=== PATIENT | female | born 2000 | race African-American/Black ===

== ENCOUNTER 2022-07-18 14:35 | Emergency (ER) | payer OTHER, SELFPAY ==
[2022-07-18 14:40] VITALS: BP 135/88; PULSE 94; RESP 18; TEMP 36.2; O2SAT 100
--- NOTE | 2022-07-18 15:17 | ED.BURNSMOKE ---
HPI - Burn/Smoke Inhalation General Chief complaint: Burn/Smoke Inhalation Stated complaint: burn on arm from work Time Seen by Provider: 07/18/22 14:52 Source: patient Mode of arrival: ambulatory Limitations: no limitations History of Present Illness HPI Narrative: This is a 22-year-old female that presents to the emergency department for a burn to the left forearm sustained just prior to arrival. 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 Reports burning pain to the left forearm. She is up to date on tetanus. Denies numbness. Related Data Allergies Allergy/AdvReac Type Severity Reaction Status Date / Time No Known Allergies Allergy Verified 07/18/22 14:54 Review of Systems Review of Systems: CONSTITUTIONAL: Denies fever SKIN: Reports burn MUSCULOSKELETAL: Denies joint pain, or myalgia. NEUROLOGIC: Denies numbness, or weakness. All systems reviewed & are unremarkable except as noted in HPI and below PMFSH Past Medical History Medical History (Updated 07/18/22 @ 15:26 by Ca Carlos PA-C) No active medical problems Social History Social History (Updated 07/18/22 @ 15:21 by Ca Carlos PA-C) Smoking status: Never smoker Exam Narrative: GENERAL: Well-appearing, well-nourished, and in no acute distress. HEAD: Normocephalic, atraumatic. EYES: EOMI. EXTREMITIES: Normal range of motion. No edema. Normal radial pulse. Normal sensation. Small, superficial burn to the left forearm SKIN: Warm, dry, no rash. NEURO: No focal deficits. Alert and oriented x3. PSYCH: Normal mood and affect Course Vital Signs Vital signs: Vital Signs Temperature 97.1 F L 07/18/22 14:40 Pulse Rate 94 07/18/22 14:40 Respiratory Rate 18 07/18/22 14:40 Blood Pressure 135/88 07/18/22 14:40 Pulse Oximetry 100 07/18/22 14:40 Oxygen Delivery Room Air 07/18/22 14:40 Temperature 97.1 F L 07/18/22 14:40 Pulse Rate 94 07/18/22 14:40 Respiratory Rate 18 07/18/22 14:40 Blood Pressure 135/88 07/18/22 14:40 Pulse Oximetry 100 07/18/22 14:40 Oxygen Delivery Room Air 07/18/22 14:40 MDM - Burn/Smoke Inhalation MDM Narrative Medical decision making narrative: Patient presents to the emergency department for a burn sustained just prior to arrival. Has a small area of superficial burn noted to the left forearm. Patient is up-to-date on tetanus. Wound was cleansed and covered with cell-mediated bandage. She was educated on further wound care. She is to follow-up with her primary care provider. She was given warnings to return to the ER Critical Care Time Critical Care Time Critical Care Time: No Discharge Plan Discharge Clinical Impression: Superficial burn of left forearm Qualifiers: Encounter type: initial encounter Qualified Code(s): T22.112A - Burn of first degree of left forearm, initial encounter Patient Disposition: Home, Self-Care Condition: Stable Instructions: Superficial Burn (ED) Additional Instructions: Return to the emergency department if you experience fever, redness and swelling of your wounds, abnormal drainage from your wounds, or any other symptoms that are concerning to you Apply cream and clean your wound with mild soap and water daily Follow-up with primary care doctor Follow-up/Referrals: Servando Danielle MD [Physician] - 1 Week PHYSICIAN,[facility] [Primary Care Provider] -
[2022-07-18] MEDS: SILVER SULFADIAZINE 1% CR 50 GM JAR (*BKC) 1 APPLIC TOPICAL (15:29)
== END 2022-07-18 16:00 | disposition home or self-care (01) ==
PROVIDERS: Emergency Provider Emergency Medicine
DX: T22.112A Burn of first degree of left forearm, initial encounter (principal); T31.0 Burns involving less than 10% of body surface; X15.0XXA Contact with hot stove (kitchen), initial encounter; Y99.0 Civilian activity done for income or pay
CPT/HCPCS: 99283; A9270